=== PATIENT | male | born 1990 | race Caucasian/White ===

== ENCOUNTER 2017-08-18 09:35 | Emergency (ER) | payer BC ==
[2017-08-18] MEDS: SODIUM PHOSPHATES 19/7GM 133 ML ENEMA. PR (10:56)
== END 2017-08-18 11:39 | disposition home or self-care (01) ==
LOC: ER 09:35
DX: K59.00 Constipation, unspecified (principal); K64.4 Residual hemorrhoidal skin tags; I10 Essential (primary) hypertension
CPT/HCPCS: 74018; 99284